=== PATIENT | male | born 1990 | race Caucasian/White ===

== ENCOUNTER → 2021-08-02 15:14 | Outpatient (CLI) | payer OTHER, MEDICAID, SELFPAY ==
--- NOTE | 2021-08-02 | DI.RAD.S_ITS ---
PROCEDURE: XR CHEST 2V INDICATIONS: CHEST PAIN TECHNIQUE: 2 views of the chest were acquired. COMPARISON: None. FINDINGS: Surgical changes and devices: None. Lungs and pleura: Lungs are clear. No pleural effusions or pneumothorax. Mediastinum: Mediastinal contours are normal. Heart size is normal. Bones and chest wall: No suspicious bony abnormalities. Soft tissues appear unremarkable. IMPRESSION: No acute cardiopulmonary process demonstrated radiographically. Dictated by: Efra Payne M.D. on 08/02/2021 at 15:45 Approved by: Efra Payne M.D. on 08/02/2021 at 15:45
== END ==
PROVIDERS: Family Provider Pediatrics; PCP Student in an Organized Health Care Education/Training Program; Referring Provider Student in an Organized Health Care Education/Training Program; Visit Provider Student in an Organized Health Care Education/Training Program
DX: R07.9 Chest pain, unspecified (principal)
CPT/HCPCS: 71046

== ENCOUNTER → 2021-09-05 15:25 | Outpatient (CLI) | payer OTHER, MEDICAID, SELFPAY ==
--- NOTE | 2021-09-05 15:27 | DI.ECHO.S_ITS ---
[place] [facility]---------+ [facility] +---------+ : : [address] : : : : [id number] : : : : Phone: [phone]+ Echocardiogram Report + + :Name: MICHELLE NOVA Study Date: 09/05/2021 Height: 72 in : :[facility] ReadingLocation: Weight: 235 lb : : Gender: Male BSA: 2.3 m2 : :: 1990 Age: 30 yrs BP: 135/94 mmHg: :Reason For Study: CARDIOMEGALY : :Ordering Physician: NEFTALY, : :OLGA Performed By: Luzma Kaufman : :Referring: OLGA HIGGINBOTHAM : + + Interpretation Summary The left ventricle is normal in size. There is mild concentric left ventricular hypertrophy. Left ventricular systolic function appears normal without focal wall motion abnormalities. The ejection fraction is estimated to be 55-60%. Diastolic parameters suggest a relaxation abnormality of the left ventricle, consistent with probable normal filling pressures. The right ventricle is normal in size and function. Pulmonary artery pressures cannot be estimated because of the lack of a measurable TR jet velocity but the IVC suggests a CVP of around 3 mmHg. The left atrial size is normal. Right atrial size is normal. There is no significant valvular heart disease. The aortic root is normal size. Procedure: A two-dimensional transthoracic echocardiogram with color flow and Doppler was performed. The study quality was technically adequate. There is no prior echocardiogram noted for this patient. The patient was in atrial fibrillation with heart rates between 88-114 bpm during the exam. Left Ventricle: The left ventricle is normal in size. There is mild concentric left ventricular hypertrophy. Left ventricular systolic function appears normal without focal wall motion abnormalities. The ejection fraction is estimated to be 55-60%. Diastolic parameters suggest a relaxation abnormality of the left ventricle, consistent with probable normal filling pressures. Right Ventricle: The right ventricle is normal in size and function. Atria: The left atrial size is normal. Right atrial size is normal. There is no Doppler evidence for an interatrial shunt. Mitral Valve: The mitral valve is normal in structure and function. There is no mitral regurgitation noted. Aortic Valve: The aortic valve is trileaflet. The aortic valve opens well. There is no aortic valve stenosis. No aortic regurgitation is present. Tricuspid Valve: The tricuspid valve is normal in structure and function. There is trace tricuspid regurgitation. Pulmonary artery pressures cannot be estimated because of the lack of a measurable TR jet velocity but the IVC suggests a CVP of around 3 mmHg. Pulmonic Valve: The pulmonic valve leaflets are thin and pliable; valve motion is normal. There is a trace or physiologic amount of pulmonic regurgitation. There is no significant valvular heart disease. Great Vessels: The aortic root is normal size. The dimensions of the ascending aorta are normal. The IVC is of normal diameter and collapses greater than 50% with a sniff. This suggests a low right atrial pressure of 3 mm Hg. Pericardium/ Pleura There is no pericardial effusion. There is no pleural effusion. MMode/2D Measurements & Calculations LVIDd: 3.7 cm LVOT diam: 2.2 cm LVIDs: 2.6 cm Ao root diam: 3.5 cm FS: 29.1 % asc Aorta Diam: 2.9 cm IVSd: 1.1 cm Ao Arch Diam (Prox Trans): 3.0 cm LVPWd: 1.1 cm LV kim. diameter/BSA (cm/m^2): 1.6 LV sys. diameter/BSA (cm/m^2): 1.2 LA A2 area: 18.3 cm2 RA long axis: 4.9 cm LA A4 area: 17.2 cm2 RA area: 15.9 cm2 LA length (vol): 5.0 cm RA vol: 43.8 ml LA vol: 52.8 ml RA : 19.2 ml/m2 LA vol index: 23.2 ml/m2 IVC diam: 1.2 cm RVD1 (basal): 2.9 cm RVD2 (mid): 2.6 cm TAPSE: 1.7 cm Doppler Measurements & Calculations Ao V2 max: 125.0 cm/sec LVOT Max Mehran: 107.6 cm/sec Ao V2 mean: 83.9 cm/sec LV V1 max P.6 mmHg Ao max P.3 mmHg LV V1 VTI: 17.8 cm Ao mean P.3 mmHg JAQUAN(I,D): 3.3 cm2 Ao V2 VTI: 21.1 cm JAQUAN(V,D): 3.4 cm2 sev ratio: 0.85 JAQUAN indexed to BSA (cm^2/m^2): 1.5 MV E max mehran: 81.4 cm/sec PA V2 max: 98.3 cm/sec MV A max mehran: 90.9 cm/sec PA V2 mean: 70.3 cm/sec MV E/A: 0.90 PA mean P.2 mmHg Med Peak E' Mehran: 18.1 cm/sec PA pr(Accel): 39.6 mmHg E/E' med: 4.5 Lat Peak E' Mehran: 19.4 cm/sec E/E' lat: 4.2 E/e' average: 4.3 SV(LVOT): 70.1 ml Reading Physician:06:26 PM
== END ==
PROVIDERS: Family Provider Pediatrics; PCP Student in an Organized Health Care Education/Training Program; Referring Provider Student in an Organized Health Care Education/Training Program; Visit Provider Student in an Organized Health Care Education/Training Program
DX: I51.7 Cardiomegaly (principal)
CPT/HCPCS: 93306

== ENCOUNTER 2024-01-29 14:30 | Outpatient (RCR) | payer OTHER, MEDICAID, SELFPAY ==
--- NOTE | 2024-01-08 15:37 | PT.OIE ---
Current Diagnoses Pain in unspecified ankle and joints of unspecified foot (01/08/24) Weakness (01/08/24) Past Medical History (Last Updated 11/19/23 @ 10:19 by Nahed Noyola MD) Cluster headache Encounter to establish care Hyperlipidemia Onychomycosis Visit Care Team Role Provider Type Nahed Noyola MD Attending Provider Physician Family Provider Primary Care Provider Referring Provider Specialty: [facility] SCHOOL CURRICULUM DEVELOPER Address: [address] [place] [address], [facility] Fax: Email: [email or web address] Physical Therapy Initial Evaluation PT-OP-A Visit Information Start: 01/07/24 16:54 Freq: Status: Active Protocol: Document 01/08/24 14:32 SAK (Rec: 01/08/24 15:25 SAK [id number]) Out-Patient Physical Therapy Visit Information Visit Information Visit Type Initial Evaluation Visit Start Time 14:33 Visit Stop Time 15:13 Visit Number 1 Evaluation Information Evaluation Date 01/08/24 Precautions Precautions fungal infection álvaro great toes PT-OP-B Current Condition Start: 01/07/24 16:54 Freq: Status: Active Protocol: Document 01/08/24 14:32 SAK (Rec: 01/08/24 15:25 SAK [id number]) Current Condition History of Current Condition Onset Date 11/02/23 Current Complaints right ankle stiffness History of Current Condition Sprained ankle coming down stairs most weight came down onto foot, not sure if rolled laterally. 4-5 days severe swelling, then moderate for at least another week. Iced at first day 2. Stiffness worst in am, pain toward end of day if on feet a lot. Wore a boot for 2 weeks, then compression strap for about 2 weeks. Mild pain also with walking on an incline. Prior Treatments and Tests x-ray negative for fracture. Treatment Goals Patient/Caregiver Goals fully recover from ankle sprain, eliminate pain and stiffness Prior Functional Status Baseline Function- ADL's Independent Baseline Function- Mobility Independent Baseline Function- Gait no restictions Baseline Function- Recreation/Hobbies golf PT-OP-C Subjective Start: 01/07/24 16:54 Freq: Status: Active Protocol: Document 01/08/24 14:32 SAK (Rec: 01/08/24 15:25 [facility] [id number]) OP-PT Pain Assessment Pain Assessment Grid Paper Pain Assessment Grid Completed Yes Location right ankle Description Aching,Tightness Description- Other stiffness PT-OP-D Balance Start: 01/07/24 16:54 Freq: Status: Active Protocol: Document 01/08/24 14:32 SAK (Rec: 01/08/24 15:25 [facility] [id number]) OP-PT Balance Assessment Standing Balance Standing Balance Comments SLS left 20 sec min sway, right 10 sec mod sway Balance Tests Tandem Tandem Standing 14 Lyles Fall Scale Copyright Permission PT-OP-G Mobility & Gait Start: 01/07/24 16:54 Freq: Status: Active Protocol: Document 01/08/24 14:32 SAK (Rec: 01/08/24 15:25 [facility] [id number]) OP Mobility Evaluation Functional Movements Squats dec weight bearing right OP Gait Assessment Gait Gait Assistance Required: Independent Gait Deviations General Gait Pattern Within Normal Limits Stair Climbing Evaluation Evaluation Level of Assist On Stairs Independent Technique/Endurance Stair Climbing Direction Ascend and Descend Stair Climbing Technique Step Over Step PT-OP-H Neuro Start: 01/07/24 16:54 Freq: Status: Active Protocol: Document 01/08/24 14:32 SAK (Rec: 01/08/24 15:25 [facility] [id number]) Sensation Evaluation Gross Sensation Gross Sensation WNL PT-OP-J Posture/Palpation/Skin Start: 01/07/24 16:54 Freq: Status: Active Protocol: Document 01/08/24 14:32 SAK (Rec: 01/08/24 15:28 [facility] [id number]) Palpation Assessment Location talonavicular Palpation Location R Palpation Findings Tenderness PT-OP-K Range of Motion Start: 01/07/24 16:54 Freq: Status: Active Protocol: Document 01/08/24 14:32 SAK (Rec: 01/08/24 15:25 [facility] [id number]) Ankle and Foot Goniometric Range of Motion Ankle and Foot Right Active Ankle/Foot ROM WFL Yes Left Ankle/Foot ROM WFL Yes PT-OP-M Strength Start: 01/07/24 16:54 Freq: Status: Active Protocol: Document 01/08/24 14:32 SAK (Rec: 01/08/24 15:25 [facility] [id number]) Ankle/Foot Strength Ankle and Foot Manual Muscle Testing Right Dorsiflexion (L4) 4+ Good+ Plantarflexion (S1) 4+ Good+ Inversion 4+ Good+ Eversion (S1) 4+ Good+ Left Dorsiflexion (L4) 5 Normal Plantarflexion (S1) 5 Normal Inversion 5 Normal Eversion (S1) 5 Normal PT-OP-Q Treatments Start: 01/07/24 16:54 Freq: Status: Active Protocol: Document 01/08/24 14:32 [facility] (Rec: 01/08/24 15:25 [facility] [id number]) Self-Care/Home Management Treatment Education Patient Education Home Exercise Program Other Education issued written HEP PT-OP-T Assessment and Plan Start: 01/07/24 16:54 Freq: Status: Active Protocol: Document 01/08/24 14:32 [facility] (Rec: 01/08/24 15:36 [facility] [id number]) Physical Therapy Assessment Rehab Potential Rehabilitation Potential Good Evaluation Complexity Number of Personal Factors/Comorbidities 1-2 Number of Body Systems Impaired 3 Clinical Presentation at Evaluation Stable Impairments Impairments Pain,Strength Other Impairments stiffness Goals Two Impairment decreased right ankle strength and balance Short Term Goal (STG) patient to be instructed in HEP for purposes of right ankle strengthening and balance STG Duration 02/09/24 Life Science Teacher Goal (LTG) Patient will be independent with HEP, demonstrate improvement in right ankle strength to 5/5 and able to do single leg heel raise 10x and improve balance to single leg stance x20 sec without difficulty LTG Duration 03/11/24 One Impairment right ankle pain and stiffness Short Term Goal (STG) Decrease right ankle pain and stiffness by at least 50% STG Duration 02/09/24 Care Home Goal (LTG) Decrease right ankle pain and stiffness by at least 90% to alow patient to return to prior level of function LTG Duration 03/11/24 Assessment Summary Assessment Patient presents to PT with c/ o pain and stiffness right ankle s/p sprain sustained when he missed the bottom stair while walking down stairs. He has tenderness at talonavicular joint, weakness right ankle, and decreased balance/proprioception. Feel he will benefit from skilled PT to help him improve his strength and balance and decrease his pain to help him return to prior level of function. POC was discussed with patient and he was in agreement. Physical Therapy Plan Frequency and Duration Frequency of Treatment 6 visits Duration of treatment (weeks) 8 Plan of Care Start Date 01/08/24 Plan of Care End Date 03/10/24 Therapeutic Interventions Therapeutic Interventions Balance Training,Gait Training ,Home Exercise Program,Manual Therapy,Neuromuscular Re- education,Patient/Caregiver Education,Self-Care/Home Management,Soft Tissue Mobilization,Taping, Therapeutic Activities, Therapeutic Exercises Modalities Cold Pack/Ice Massage,Hot Packs,Ultrasound Next Visit Focus/Plan Next Note Type Treatment Note Next Visit Plan Start with elliptical or treatmill, high level balance activities and ankle strengthening.
--- NOTE | 2024-01-08 15:37 | PT.OPPOC ---
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 Plan Of Care PT-OP-B Current Condition Start: 01/07/24 16:54 Freq: Status: Active Protocol: Document 01/08/24 14:32 SAK (Rec: 01/08/24 15:25 SAK [id number]) Current Condition History of Current Condition Onset Date 11/02/23 Current Complaints right ankle stiffness History of Current Condition Sprained ankle coming down stairs most weight came down onto foot, not sure if rolled laterally. 4-5 days severe swelling, then moderate for at least another week. Iced at first day 2. Stiffness worst in am, pain toward end of day if on feet a lot. Wore a boot for 2 weeks, then compression strap for about 2 weeks. Mild pain also with walking on an incline. Prior Treatments and Tests x-ray negative for fracture. Treatment Goals Patient/Caregiver Goals fully recover from ankle sprain, eliminate pain and stiffness Prior Functional Status Baseline Function- ADL's Independent Baseline Function- Mobility Independent Baseline Function- Gait no restictions Baseline Function- Recreation/Hobbies golf PT-OP-T Assessment and Plan Start: 01/07/24 16:54 Freq: Status: Active Protocol: Document 01/08/24 14:32 SAK (Rec: 01/08/24 15:36 SAK [id number]) Physical Therapy Assessment Rehab Potential Rehabilitation Potential Good Evaluation Complexity Number of Personal Factors/Comorbidities 1-2 Number of Body Systems Impaired 3 Clinical Presentation at Evaluation Stable Impairments Impairments Pain,Strength Other Impairments stiffness Goals Two Impairment decreased right ankle strength and balance Short Term Goal (STG) patient to be instructed in HEP for purposes of right ankle strengthening and balance STG Duration 02/09/24 Residential Goal (LTG) Patient will be independent with HEP, demonstrate improvement in right ankle strength to 5/5 and able to do single leg heel raise 10x and improve balance to single leg stance x20 sec without difficulty LTG Duration 03/11/24 One Impairment right ankle pain and stiffness Short Term Goal (STG) Decrease right ankle pain and stiffness by at least 50% STG Duration 02/09/24 Cyber Security Instructor Goal (LTG) Decrease right ankle pain and stiffness by at least 90% to alow patient to return to prior level of function LTG Duration 03/11/24 Assessment Summary Assessment Patient presents to PT with c/ o pain and stiffness right ankle s/p sprain sustained when he missed the bottom stair while walking down stairs. He has tenderness at talonavicular joint, weakness right ankle, and decreased balance/proprioception. Feel he will benefit from skilled PT to help him improve his strength and balance and decrease his pain to help him return to prior level of function. POC was discussed with patient and he was in agreement. Physical Therapy Plan Frequency and Duration Frequency of Treatment 6 visits Duration of treatment (weeks) 8 Plan of Care Start Date 01/08/24 Plan of Care End Date 03/10/24 Therapeutic Interventions Therapeutic Interventions Balance Training,Gait Training ,Home Exercise Program,Manual Therapy,Neuromuscular Re- education,Patient/Caregiver Education,Self-Care/Home Management,Soft Tissue Mobilization,Taping, Therapeutic Activities, Therapeutic Exercises Modalities Cold Pack/Ice Massage,Hot Packs,Ultrasound Next Visit Focus/Plan Next Note Type Treatment Note Next Visit Plan Start with elliptical or treatmill, high level balance activities and ankle strengthening. Plan of Care Dates Plan of Care Start Date 01/08/24 Plan of Care End Date 03/10/24 Electronically Signed by: Kelli Pérez, PT 01/08/24 5560 If you are in agreement with this Plan of Care, please return a signed and dated copy. I have reviewed this Plan of Care and certify that the skilled therapy services above are required to meet the patient?s needs. Physician Signature Date Printed Name and Credentials Clinical Instructor Signature Printed Name and Credentials
--- NOTE | 2024-01-08 15:43 | PT.OPPOC ---
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 4-5 days severe swelling, then moderate for at least another week. Iced at first day 2. Stiffness worst in am, pain toward end of day if on feet a lot. Wore a boot for 2 weeks, then compression strap for about 2 weeks. Mild pain also with walking on an incline. Prior Treatments and Tests x-ray negative for fracture. Treatment Goals Patient/Caregiver Goals fully recover from ankle sprain, eliminate pain and stiffness Prior Functional Status Baseline Function- ADL's Independent Baseline Function- Mobility Independent Baseline Function- Gait no restictions Baseline Function- Recreation/Hobbies golf PT-OP-T Assessment and Plan Start: 01/07/24 16:54 Freq: Status: Active Protocol: Document 01/08/24 14:32 SAK (Rec: 01/08/24 15:36 SAK [id number]) Physical Therapy Assessment Rehab Potential Rehabilitation Potential Good Evaluation Complexity Number of Personal Factors/Comorbidities 1-2 Number of Body Systems Impaired 3 Clinical Presentation at Evaluation Stable Impairments Impairments Pain,Strength Other Impairments stiffness Goals Two Impairment decreased right ankle strength and balance Short Term Goal (STG) patient to be instructed in HEP for purposes of right ankle strengthening and balance STG Duration 02/09/24 Custodial Goal (LTG) Patient will be independent with HEP, demonstrate improvement in right ankle strength to 5/5 and able to do single leg heel raise 10x and improve balance to single leg stance x20 sec without difficulty LTG Duration 03/11/24 One Impairment right ankle pain and stiffness Short Term Goal (STG) Decrease right ankle pain and stiffness by at least 50% STG Duration 02/09/24 Media Law Faculty Member Goal (LTG) Decrease right ankle pain and stiffness by at least 90% to alow patient to return to prior level of function LTG Duration 03/11/24 Assessment Summary Assessment Patient presents to PT with c/ o pain and stiffness right ankle s/p sprain sustained when he missed the bottom stair while walking down stairs. He has tenderness at talonavicular joint, weakness right ankle, and decreased balance/proprioception. Feel he will benefit from skilled PT to help him improve his strength and balance and decrease his pain to help him return to prior level of function. POC was discussed with patient and he was in agreement. Physical Therapy Plan Frequency and Duration Frequency of Treatment 6 visits Duration of treatment (weeks) 8 Plan of Care Start Date 01/08/24 Plan of Care End Date 03/10/24 Therapeutic Interventions Therapeutic Interventions Balance Training,Gait Training ,Home Exercise Program,Manual Therapy,Neuromuscular Re- education,Patient/Caregiver Education,Self-Care/Home Management,Soft Tissue Mobilization,Taping, Therapeutic Activities, Therapeutic Exercises Modalities Cold Pack/Ice Massage,Hot Packs,Ultrasound Next Visit Focus/Plan Next Note Type Treatment Note Next Visit Plan Start with elliptical or treatmill, high level balance activities and ankle strengthening. Plan of Care Dates Plan of Care Start Date 01/08/24 Plan of Care End Date 03/10/24 Electronically Signed by: Kelli Pérez, PT 01/08/24 4627 If you are in agreement with this Plan of Care, please return a signed and dated copy. I have reviewed this Plan of Care and certify that the skilled therapy services above are required to meet the patient?s needs. Physician Signature Date Printed Name and Credentials Clinical Instructor Signature Printed Name and Credentials
--- NOTE | 2024-01-10 16:20 | PT.OTN ---
Current Diagnoses Pain in unspecified ankle and joints of unspecified foot (01/10/24) Weakness (01/10/24) Physical Therapy Treatment Note PT-OP-A Visit Information Start: 01/07/24 16:54 Freq: Status: Active Protocol: Document 01/10/24 09:46 SAK (Rec: 01/10/24 10:35 [facility] [id number]) Out-Patient Physical Therapy Visit Information Visit Information Visit Type Initial Evaluation Visit Start Time 09:47 Visit Stop Time 10:30 Visit Number 2 Evaluation Information Evaluation Date 01/08/24 Precautions Precautions fungal infection álvaro great toes PT-OP-B Current Condition Start: 01/07/24 16:54 Freq: Status: Active Protocol: Document 01/10/24 09:46 SAK (Rec: 01/10/24 10:35 [facility] [id number]) Current Condition History of Current Condition Onset Date 11/02/23 Current Complaints right ankle stiffness History of Current Condition Sprained ankle coming down stairs most weight came down onto foot, not sure if rolled laterally. 4-5 days severe swelling, then moderate for at least another week. Iced at first day 2. Stiffness worst in am, pain toward end of day if on feet a lot. Wore a boot for 2 weeks, then compression strap for about 2 weeks. Mild pain also with walking on an incline. Prior Treatments and Tests x-ray negative for fracture. PT-OP-C Subjective Start: 01/07/24 16:54 Freq: Status: Active Protocol: Document 01/10/24 09:46 SAK (Rec: 01/10/24 10:35 [facility] [id number]) OP-PT Subjective Patient Comments Patient Comments No new c/o, HEP going ok, less pain and stiffness if does a few warm up exercises prior to going down the stairs in the am. Most often feels pain with closed chain ankle df PT-OP-D Balance Start: 01/07/24 16:54 Freq: Status: Active Protocol: Document 01/08/24 14:32 SAK (Rec: 01/08/24 15:25 SAK [id number]) OP-PT Balance Assessment Standing Balance Standing Balance Comments SLS left 20 sec min sway, right 10 sec mod sway Balance Tests Tandem Tandem Standing 14 Lyles Fall Scale Copyright Permission PT-OP-G Mobility & Gait Start: 01/07/24 16:54 Freq: Status: Active Protocol: Document 01/08/24 14:32 [facility] (Rec: 01/08/24 15:25 [facility] [id number]) OP Mobility Evaluation Functional Movements Squats dec weight bearing right OP Gait Assessment Gait Gait Assistance Required: Independent Gait Deviations General Gait Pattern Within Normal Limits Stair Climbing Evaluation Evaluation Level of Assist On Stairs Independent Technique/Endurance Stair Climbing Direction Ascend and Descend Stair Climbing Technique Step Over Step PT-OP-H Neuro Start: 01/07/24 16:54 Freq: Status: Active Protocol: Document 01/08/24 14:32 SAK (Rec: 01/08/24 15:25 [facility] [id number]) Sensation Evaluation Gross Sensation Gross Sensation WNL PT-OP-J Posture/Palpation/Skin Start: 01/07/24 16:54 Freq: Status: Active Protocol: Document 01/08/24 14:32 SAK (Rec: 01/08/24 15:28 [facility] [id number]) Palpation Assessment Location talonavicular Palpation Location R Palpation Findings Tenderness PT-OP-K Range of Motion Start: 01/07/24 16:54 Freq: Status: Active Protocol: Document 01/08/24 14:32 SAK (Rec: 01/08/24 15:25 [facility] [id number]) Ankle and Foot Goniometric Range of Motion Ankle and Foot Right Active Ankle/Foot ROM WFL Yes Left Ankle/Foot ROM WFL Yes PT-OP-M Strength Start: 01/07/24 16:54 Freq: Status: Active Protocol: Document 01/08/24 14:32 [facility] (Rec: 01/08/24 15:25 [facility] [id number]) Ankle/Foot Strength Ankle and Foot Manual Muscle Testing Right Dorsiflexion (L4) 4+ Good+ Plantarflexion (S1) 4+ Good+ Inversion 4+ Good+ Eversion (S1) 4+ Good+ Left Dorsiflexion (L4) 5 Normal Plantarflexion (S1) 5 Normal Inversion 5 Normal Eversion (S1) 5 Normal PT-OP-Q Treatments Start: 01/07/24 16:54 Freq: Status: Active Protocol: Document 01/10/24 09:46 SAK (Rec: 01/10/24 10:35 [facility] [id number]) Cardio Equipment Elliptical Duration (Minutes) 5 Resistance 4 Gym Equipment Shuttle Balance chains red Details next session Therapeutic Exercises Standing Exercises heel walk Reps/Minutes 10 ft x 2 toe walk Reps/Minutes 10 ft x 2 gastroc, mann Reps/Minutes 2x30 Comments WIL Manual Therapy Treatment Joint Mobilizations talonavic Direction distraction subtalar Direction distraction Manual Techniques MWM ankle df Body Location ankle Comments shown how to use theraband and issued L4 TB Neuro Re-Education Treatment Balance Activities clocks Equipment blue foam Comments 3 rounds BOSU Details bal EO, EC, step-ups round side, bal and wt shift EO flat side, SLS tandem stand Reps/Duration 2x30, 2x30 Comments black 1/2 foam roller; double and single SLS Equipment blue foam, black foam pad, Self-Care/Home Management Treatment Education Patient Education Home Exercise Program Other Education self ankle mobilization with theraband PT-OP-T Assessment and Plan Start: 01/07/24 16:54 Freq: Status: Active Protocol: Document 01/10/24 09:46 [facility] (Rec: 01/10/24 10:35 [facility] [id number]) Physical Therapy Assessment Goals Two Impairment decreased right ankle strength and balance Short Term Goal (STG) patient to be instructed in HEP for purposes of right ankle strengthening and balance STG Duration 02/09/24 Property Disposal Manager Goal (LTG) Patient will be independent with HEP, demonstrate improvement in right ankle strength to 5/5 and able to do single leg heel raise 10x and improve balance to single leg stance x20 sec without difficulty LTG Duration 03/11/24 One Impairment right ankle pain and stiffness Short Term Goal (STG) Decrease right ankle pain and stiffness by at least 50% STG Duration 02/09/24 Property Disposal Manager Goal (LTG) Decrease right ankle pain and stiffness by at least 90% to alow patient to return to prior level of function LTG Duration 03/11/24 Assessment Summary Assessment dec pain with ther ex prior to getting up dec stiffness. Stated manual distraction subtalar and talonavicular felt like relief I didn't know I needed. Shown how to use TB for MWM Physical Therapy Plan Frequency and Duration Frequency of Treatment 6 visits Duration of treatment (weeks) 8 Plan of Care Start Date 01/08/24 Plan of Care End Date 03/10/24 Therapeutic Interventions Therapeutic Interventions Balance Training,Gait Training ,Home Exercise Program,Manual Therapy,Neuromuscular Re- education,Patient/Caregiver Education,Self-Care/Home Management,Soft Tissue Mobilization,Taping, Therapeutic Activities, Therapeutic Exercises Modalities Cold Pack/Ice Massage,Hot Packs,Ultrasound Next Visit Focus/Plan Next Note Type Treatment Note Next Visit Plan further manual techniques subtalar and talonavic, progres ther ex as analy for right ankle rehab.
--- NOTE | 2024-01-29 16:36 | PT.OTN ---
Current Diagnoses Pain in unspecified ankle and joints of unspecified foot (01/29/24) Weakness (01/29/24) Physical Therapy Treatment Note PT-OP-A Visit Information Start: 01/07/24 16:54 Freq: Status: Active Protocol: Document 01/29/24 14:36 SW (Rec: 01/29/24 15:19 SW [id number]) Out-Patient Physical Therapy Visit Information Visit Information Visit Type Treatment Note Visit Start Time 14:32 Visit Stop Time 15:10 Visit Number 3 Number of PIPELAYER Visits 1 Precautions Precautions fungal infection álvaro great toes PT-OP-B Current Condition Start: 01/07/24 16:54 Freq: Status: Active Protocol: Document 01/10/24 09:46 SAK (Rec: 01/10/24 10:35 SAK [id number]) Current Condition History of Current Condition Onset Date 11/02/23 Current Complaints right ankle stiffness History of Current Condition Sprained ankle coming down stairs most weight came down onto foot, not sure if rolled laterally. 4-5 days severe swelling, then moderate for at least another week. Iced at first day 2. Stiffness worst in am, pain toward end of day if on feet a lot. Wore a boot for 2 weeks, then compression strap for about 2 weeks. Mild pain also with walking on an incline. Prior Treatments and Tests x-ray negative for fracture. PT-OP-C Subjective Start: 01/07/24 16:54 Freq: Status: Active Protocol: Document 01/29/24 14:36 SW (Rec: 01/29/24 15:19 SW [id number]) OP-PT Subjective Patient Comments Patient Comments Pt reports less stiffness. Not noticing it as much going up and down stairs. PT-OP-D Balance Start: 01/07/24 16:54 Freq: Status: Active Protocol: Document 01/08/24 14:32 SAK (Rec: 01/08/24 15:25 SAK [id number]) OP-PT Balance Assessment Standing Balance Standing Balance Comments SLS left 20 sec min sway, right 10 sec mod sway Balance Tests Tandem Tandem Standing 14 Lyles Fall Scale Copyright Permission PT-OP-G Mobility & Gait Start: 01/07/24 16:54 Freq: Status: Active Protocol: Document 01/08/24 14:32 SAK (Rec: 01/08/24 15:25 SAK [id number]) OP Mobility Evaluation Functional Movements Squats dec weight bearing right OP Gait Assessment Gait Gait Assistance Required: Independent Gait Deviations General Gait Pattern Within Normal Limits Stair Climbing Evaluation Evaluation Level of Assist On Stairs Independent Technique/Endurance Stair Climbing Direction Ascend and Descend Stair Climbing Technique Step Over Step PT-OP-H Neuro Start: 01/07/24 16:54 Freq: Status: Active Protocol: Document 01/08/24 14:32 SAK (Rec: 01/08/24 15:25 [facility] [id number]) Sensation Evaluation Gross Sensation Gross Sensation WNL PT-OP-J Posture/Palpation/Skin Start: 01/07/24 16:54 Freq: Status: Active Protocol: Document 01/08/24 14:32 SAK (Rec: 01/08/24 15:28 [facility] [id number]) Palpation Assessment Location talonavicular Palpation Location R Palpation Findings Tenderness PT-OP-K Range of Motion Start: 01/07/24 16:54 Freq: Status: Active Protocol: Document 01/08/24 14:32 SAK (Rec: 01/08/24 15:25 [facility] [id number]) Ankle and Foot Goniometric Range of Motion Ankle and Foot Right Active Ankle/Foot ROM WFL Yes Left Ankle/Foot ROM WFL Yes PT-OP-M Strength Start: 01/07/24 16:54 Freq: Status: Active Protocol: Document 01/08/24 14:32 [facility] (Rec: 01/08/24 15:25 [facility] [id number]) Ankle/Foot Strength Ankle and Foot Manual Muscle Testing Right Dorsiflexion (L4) 4+ Good+ Plantarflexion (S1) 4+ Good+ Inversion 4+ Good+ Eversion (S1) 4+ Good+ Left Dorsiflexion (L4) 5 Normal Plantarflexion (S1) 5 Normal Inversion 5 Normal Eversion (S1) 5 Normal PT-OP-Q Treatments Start: 01/07/24 16:54 Freq: Status: Active Protocol: Document 01/29/24 14:36 SW (Rec: 01/29/24 15:19 SW [id number]) Cardio Equipment Elliptical Duration (Minutes) 5 Resistance 4 Gym Equipment Shuttle Balance chains red Details Red chains Comments balance/weight shifts, occasional TECHNICIAN ASSISTANT required Therapeutic Exercises Standing Exercises Heel/toe raises Standing Exercise Name H Comments pain free range heel walk Reps/Minutes 10 ft x 2 toe walk Reps/Minutes 10 ft x 2 gastroc, mann Reps/Minutes 2x30 Comments WIL Manual Therapy Treatment Consent Patient gave verbal consent for manual Yes treatment Joint Mobilizations subtalar Direction distraction Manual Techniques MWM ankle df Type Review Body Location ankle Comments shown how to use theraband and issued L4 TB Neuro Re-Education Treatment Balance Activities BOSU Details bal EO, EC, step-ups round side, bal and wt shift EO flat side, SLS SLS Equipment blue foam, black foam pad, PT-OP-T Assessment and Plan Start: 01/07/24 16:54 Freq: Status: Active Protocol: Document 01/29/24 14:36 SW (Rec: 01/29/24 15:19 [id number]) Physical Therapy Assessment Goals Two Impairment decreased right ankle strength and balance Short Term Goal (STG) patient to be instructed in HEP for purposes of right ankle strengthening and balance STG Duration 02/09/24 Snf Goal (LTG) Patient will be independent with HEP, demonstrate improvement in right ankle strength to 5/5 and able to do single leg heel raise 10x and improve balance to single leg stance x20 sec without difficulty LTG Duration 03/11/24 One Impairment right ankle pain and stiffness Short Term Goal (STG) Decrease right ankle pain and stiffness by at least 50% STG Duration 02/09/24 Pet Stylist Goal (LTG) Decrease right ankle pain and stiffness by at least 90% to alow patient to return to prior level of function LTG Duration 03/11/24 Assessment Summary Assessment Pt tolerated session well. Progressed pt with addition of shuttle recovery for strength and balance, pt challenged with control during weight shifting on shuttle, ankle strategy engaged. Reviewed R ankle MWM, for pt carryover at home. Pt reports less stiffness, no pain. Physical Therapy Plan Frequency and Duration Frequency of Treatment 6 visits Duration of treatment (weeks) 8 Plan of Care Start Date 01/08/24 Plan of Care End Date 03/10/24 Therapeutic Interventions Therapeutic Interventions Balance Training,Gait Training ,Home Exercise Program,Manual Therapy,Neuromuscular Re- education,Patient/Caregiver Education,Self-Care/Home Management,Soft Tissue Mobilization,Taping, Therapeutic Activities, Therapeutic Exercises Modalities Cold Pack/Ice Massage,Hot Packs,Ultrasound Next Visit Focus/Plan Next Note Type Treatment Note Next Visit Plan further manual techniques subtalar and talonavic, progres ther ex as analy for right ankle rehab.
--- NOTE | 2024-05-05 12:12 | PT.OPDS ---
Current Diagnoses Pain in unspecified ankle and joints of unspecified foot (01/29/24) Weakness (01/29/24) Visit Care Team Role Provider Type Nahed Noyola MD Attending Provider Physician Family Provider Primary Care Provider Referring Provider Specialty: Family Practice BUSINESS TEAM LEADER Address: [address] [place], [address] Fax: Email: [email or web address] Visit Number Visit Number 3 Discharge Summary PT-OP-B Current Condition Start: 01/07/24 16:54 Freq: Status: Active Protocol: Document 01/10/24 09:46 SAK (Rec: 01/10/24 10:35 SAK [id number]) Current Condition History of Current Condition Onset Date 11/02/23 Current Complaints right ankle stiffness History of Current Condition Sprained ankle coming down stairs most weight came down onto foot, not sure if rolled laterally. 4-5 days severe swelling, then moderate for at least another week. Iced at first day 2. Stiffness worst in am, pain toward end of day if on feet a lot. Wore a boot for 2 weeks, then compression strap for about 2 weeks. Mild pain also with walking on an incline. Prior Treatments and Tests x-ray negative for fracture. PT-OP-C Subjective Start: 01/07/24 16:54 Freq: Status: Active Protocol: Document 01/29/24 14:36 SW (Rec: 01/29/24 15:19 SW [id number]) OP-PT Subjective Patient Comments Patient Comments Pt reports less stiffness. Not noticing it as much going up and down stairs. PT-OP-D Balance Start: 01/07/24 16:54 Freq: Status: Active Protocol: Document 01/08/24 14:32 SAK (Rec: 01/08/24 15:25 SAK [id number]) OP-PT Balance Assessment Standing Balance Standing Balance Comments SLS left 20 sec min sway, right 10 sec mod sway Balance Tests Tandem Tandem Standing 14 Lyles Fall Scale Copyright Permission PT-OP-G Mobility & Gait Start: 01/07/24 16:54 Freq: Status: Active Protocol: Document 01/08/24 14:32 SAK (Rec: 01/08/24 15:25 SAK [id number]) OP Mobility Evaluation Functional Movements Squats dec weight bearing right OP Gait Assessment Gait Gait Assistance Required: Independent Gait Deviations General Gait Pattern Within Normal Limits Stair Climbing Evaluation Evaluation Level of Assist On Stairs Independent Technique/Endurance Stair Climbing Direction Ascend and Descend Stair Climbing Technique Step Over Step PT-OP-H Neuro Start: 01/07/24 16:54 Freq: Status: Active Protocol: Document 01/08/24 14:32 SAK (Rec: 01/08/24 15:25 [facility] [id number]) Sensation Evaluation Gross Sensation Gross Sensation WNL PT-OP-J Posture/Palpation/Skin Start: 01/07/24 16:54 Freq: Status: Active Protocol: Document 01/08/24 14:32 SAK (Rec: 01/08/24 15:28 [facility] [id number]) Palpation Assessment Location talonavicular Palpation Location R Palpation Findings Tenderness PT-OP-K Range of Motion Start: 01/07/24 16:54 Freq: Status: Active Protocol: Document 01/08/24 14:32 SAK (Rec: 01/08/24 15:25 [facility] [id number]) Ankle and Foot Goniometric Range of Motion Ankle and Foot Right Active Ankle/Foot ROM WFL Yes Left Ankle/Foot ROM WFL Yes PT-OP-M Strength Start: 01/07/24 16:54 Freq: Status: Active Protocol: Document 01/08/24 14:32 SAK (Rec: 01/08/24 15:25 [facility] [id number]) Ankle/Foot Strength Ankle and Foot Manual Muscle Testing Right Dorsiflexion (L4) 4+ Good+ Plantarflexion (S1) 4+ Good+ Inversion 4+ Good+ Eversion (S1) 4+ Good+ Left Dorsiflexion (L4) 5 Normal Plantarflexion (S1) 5 Normal Inversion 5 Normal Eversion (S1) 5 Normal PT-OP-T Assessment and Plan Start: 01/07/24 16:54 Freq: Status: Active Protocol: Document 05/05/24 12:11 SAK (Rec: 05/05/24 12:12 [facility] [id number]) Physical Therapy Plan Discharge Physical Therapy Discharge Reasons No Longer Attending PT
== END 2024-05-07 14:52 | disposition home or self-care (01) ==
LOC: PHYS 14:30
PROVIDERS: Family Provider Family Medicine; PCP Family Medicine; Referring Provider Family Medicine; Visit Provider Family Medicine
DX: M25.579 Pain in unspecified ankle and joints of unspecified foot (principal); R53.1 Weakness
CPT/HCPCS: 97110; 97140; 97161; 97535

== ENCOUNTER → 2024-03-11 07:14 | Outpatient (CLI) | payer OTHER, MEDICAID, SELFPAY | PROVIDERS: Family Provider Family Medicine; PCP Family Medicine; Visit Provider Physician Assistant Medical | DX: J02.9 Acute pharyngitis, unspecified (principal) | CPT/HCPCS: 87070 ==